=== PATIENT | male | born 1970 | race Caucasian/White ===

== ENCOUNTER 2022-04-18 10:32 | Emergency (ER) | payer MEDICAID ==
[2022-04-18] MEDS ORDERED: DIPH,PERTUS(ACELL)TETVAC-LF 0.5 ML VIAL IM ONE (11:05)
[2022-04-18] MEDS ORDERED: LIDOCAINE 2% INJ 20 MG/ML (20 ML MDV) SQ STA (11:07)
[2022-04-18] MEDS ORDERED: CEPHALEXIN 500 MG CAP PO STA (11:23)
[2022-04-18] MEDS ORDERED: MORPHINE SULFATE 4 MG/ML SYRINGE IM STA (11:25)
[2022-04-18] MEDS ORDERED: HYDROcodone/APAP 7.5-325MG 1 EACH TAB PO ONE (11:26)
--- NOTE | 2022-04-18 11:44 | XR ---
Left foot HISTORY: Chainsaw laceration first digit, rule out foreign body 3 views of the left foot There is a plantar calcaneal spur. Soft tissue defect present medial to the first metatarsal is noted , there is comminuted fracture of the cortex medially. There is metallic debris present at the site o f the wound which may be related to patient's chitina bone or possibly foreign bodies. No evident disl ocation. IMPRESSION: Fracture and soft tissue defect as described.
--- NOTE | 2022-04-18 12:10 | ED ---
Wound/Laceration HPI - General Chief Complaint: Wound/Laceration Stated Complaint: Chainsaw lac/left foot Time Seen by Provider: 04/18/22 10:46 Source: patient Mode of arrival: ambulatory Limitations: no limitations - History of Present Illness Initial Comments: Patient is a 51-year-old male who presents to the emergency department for laceration. Patient states he was using a chain saw today when it slipped and caught his left foot. Patient reports minimal pain. He does admit to some mild numbness around the laceration. Last tetanus unknown. - Related Data Previous Rx's Medication Instructions Recorded Cephalexin [Keflex] 500 mg PO Q6HR 5 Days #20 cap 04/18/22 Ibuprofen [Motrin] 800 mg PO Q6HR #30 tab 04/18/22 Allergies Allergy/AdvReac Type Severity Reaction Status Date / Time No Known Allergies Allergy Verified 04/18/22 10:37 Review of Systems ROS Statement: Those systems with pertinent positive or pertinent negative responses have been documented in the HPI. ROS Other: All systems not noted in ROS Statement are negative. Past Medical History Past Medical History: No Reported History History of Any Multi-Drug Resistant Organisms: None Reported Past Surgical History: No Surgical Hx Reported Past Psychological History: No Psychological Hx Reported Smoking Status: Never smoker Past Alcohol Use History: None Reported Past Drug Use History: None Reported General Exam Limitations: no limitations General appearance: alert, in no apparent distress Head exam: Present: atraumatic, normocephalic, normal inspection Eye exam: Present: normal appearance, PERRL, EOMI. Absent: scleral icterus, conjunctival injection, periorbital swelling Respiratory exam: Present: normal lung sounds bilaterally. Absent: respiratory distress, wheezes, rales, rhonchi, stridor Cardiovascular Exam: Present: regular rate, normal rhythm, normal heart sounds. Absent: systolic murmur, diastolic murmur, rubs, gallop, clicks Left Ankle exam: Present: normal inspection, full ROM. Absent: tenderness, swelling Foot/Toe exam: Present: full ROM, laceration (medial foot at first metatarsal ). Absent: tenderness, swelling Neurovascular tendon exam: Present: no vascular compromise. Absent: pulse deficit, abnormal cap refill, motor deficit, sensory deficit, tendon deficit, extremity cold to touch, pallor, decreased fine/light touch Neurological exam: Present: alert, oriented X3, CN II-XII intact Psychiatric exam: Present: normal affect, normal mood Skin exam: Present: warm, dry, intact, normal color. Absent: rash Course Vital Signs 04/18/22 04/18/22 04/18/22 10:35 11:07 14:02 Temperature 98.1 F 98 F Pulse Rate 88 110 H 92 Respiratory 20 20 18 Rate Blood Pressure 173/78 157/117 154/91 O2 Sat by Pulse 98 97 98 Oximetry Procedures - Laceration Laceration #1 Indication: laceration Site: lower extremity (left foot) Size (cm): 4 Description: linear Depth: involves tendon Anesthetic Used: lidocaine 1% Anesthesia Technique: local infiltration Pre-repair: wound explored, irrigated extensively, foreign body removed Type of Sutures: nylon Size of Sutures: 4-0 Number of Sutures: 5 Technique: vertical mattress Patient Tolerated Procedure: well, no complications - Orthopedic Splinting/Casting Injury #1 Lower Extremity Injury Location: foot Lower Extremity Immobilizer: posterior splint Other Orthopedic Equipment: crutches Medical Decision Making - Medical Decision Making This is a 51-year-old male who presents for left foot laceration. Thorough history and examination were performed. There is a laceration over the left medial foot over the first metatarsal approximately 4 cm. Neurovascularly intact. Full range of motion. Keflex and tetanus update given. X-ray obtained which shows a nondisplaced comminuted fracture of the medial cortex of the first metatarsal and metallic debris at the site of the wound which may be related to patient's big sandy bone or possibly foreign bodies. I spoke with engineer specialist Taylor Chavez personally who recommended irrigation with Betadine and closure with Keflex prescription and close follow-up in her office Thursday. This was performed. The laceration was irrigated extensively. There did appear to be tendon injury. Several metallic debris pieces were removed. It was well approximated with 5 loose sutures. Patient tolerated the procedure well with no complication. Patient was placed in posterior ankle splint. Neurovascularly intact on reassessment. Crutches given. Patient instructed to not bear any weight until orthopedic evaluation. Patient will be discharged with Keflex prescription. Wound care instruction provided in detail. Patient to call [facility] today to schedule an appointment for this Thursday. Return parameters discussed. Patient verbalizes understanding and is agreeable to this plan. Dr. Contreras is my attending. Disposition Clinical Impression: Laceration, Fracture of metatarsal bone of left foot Disposition: HOME SELF-CARE Condition: Good Additional Instructions: Please take medication as directed. It is very important to take her antibiotics. Keep splint clean and dry. Elevate the left foot as much as possible. Applying cold compress will help symptoms. You can apply a cold compress for 20 minutes each session, 4 times a day. Use crutches and do not put weight onto the left foot until orthopedic evaluation. Call orthopedic s pecialist today to schedule an appointment. Return to the emergency department if you experience new, concerning, or worsening symptoms. Prescriptions: Cephalexin [Keflex] 500 mg PO Q6HR 5 Days #20 cap Ibuprofen [Motrin] 800 mg PO Q6HR #30 tab Is patient prescribed a controlled substance at d/c from ED?: No Referrals: Edgar Riddle MD [Primary Care Provider] - 1-2 days Ting Cisneros DO [Doctor of Osteopathic Medicine] - 1-2 days Time of Disposition: 13:40
[2022-04-18] MEDS ORDERED: ACET/COD 300 MG/30 MG STARTER PACK 6 TAB BTL PO STA (13:41)
[2022-04-18 14:07] VITALS: BP 154/91; PULSE 92; RESP 18; TEMP 98
== END 2022-04-18 14:02 | disposition home or self-care (01) ==
LOC: EC 10:32
DX: S92.302A Fracture of unspecified metatarsal bone(s), left foot, initial encounter for closed fracture (principal); S91.312A Laceration without foreign body, left foot, initial encounter; Z23 Encounter for immunization; W31.2XXA Contact with powered woodworking and forming machines, initial encounter
CPT/HCPCS: 73630; 90715; 12002; 99283; 90471; J2001

== ENCOUNTER → 2022-04-21 | Outpatient (CLI) | payer MEDICAID ==
--- NOTE | 2022-04-21 14:01 | CT ---
EXAMINATION TYPE: CT foot LT wo con DATE OF EXAM: 04/21/2022 COMPARISON: X-ray 04/18/2022 HISTORY: laceration by chain saw CT DLP: 302 mGycm Automated exposure control for dose reduction was used. CONTRAST: CT scan of the left foot is performed without contrast FINDINGS- There is a soft tissue laceration adjacent to the margin of the first metatarsal. There is a defect c orresponding x-ray abnormality of the distal first metatarsal likely related to comminuted fracture w ith numerous bony fragments in soft tissues. Some soft tissue bony fragments extending into the epide rmal surface adjacent to the laceration could represent additional bony fragments on the tiny foreign body not excluded. There is soft tissue edema. Remaining osseous structures intact. Calcaneal spur noted. Joint spaces otherwise preserved. IMPRESSION- 1. Soft tissue laceration. A comminuted fracture of the distal margin of the first metatarsal. There are numerous tiny punctate densities in the soft tissues extending from bony surface to the epidermis site of laceration. May represent numerous tiny bony fragments although tiny punctate foreign body c ould not be excluded.
== END | disposition home or self-care (01) ==
LOC: RADCTMAIN 12:56
PROVIDERS: ATTEND Orthopaedic Surgery
DX: S91.312A Laceration without foreign body, left foot, initial encounter (principal); S92.312A Displaced fracture of first metatarsal bone, left foot, initial encounter for closed fracture

== ENCOUNTER 2022-04-23 11:20 | Day surgery (SDC) | payer MEDICAID ==
[2022-04-22 13:20] VITALS: BMI 33.0
[~2022-04-23 11:20] MED LIST: DEXAMETHASONE SOD PHOSPHATE 4 MG/ML 1 ML VIAL IV ONE; HYDROmorphone 0.5 MG/0.5 ML SYRINGE IVP PRN; LACTATED RINGERS 1,000 ML IV SCH; ONDANSETRON 4 MG/2 ML VIAL IVP ONE; Pre Op ABX Message 1 EACH MISC MISCELLANE ONE
[2022-04-23] MEDS ORDERED: PROPOFOL 10 MG/ML 20 ML VIAL IV ONE (12:32)
[2022-04-23] MEDS ORDERED: fentaNYL (PF) 50 MCG/ML 2 ML AMP ONE (12:32)
[2022-04-23] MEDS ORDERED: MIDAZOLAM 2 MG/2 ML VIAL ONE (12:32)
[2022-04-23] MEDS ORDERED: PHENYLEPHRINE-0.9% NACL SYG 1,000 MCG/10 ML SYRINGE ONE (12:32)
[2022-04-23] MEDS ORDERED: LIDOCAINE 2% INJ 20 MG/ML (2 ML VIAL) ONE (12:32)
[2022-04-23] MEDS ORDERED: HYDROmorphone (PF) 1 MG/ML ONE (12:32)
[2022-04-23 13:45] VITALS: TEMP 96.8
--- NOTE | 2022-04-23 13:49 | P.OP ---
Date of Procedure: 04/23/22 Preoperative Diagnosis: Open left first metatarsal fracture and soft tissue laceration from chainsaw injury Postoperative Diagnosis: Same Procedure(s) Performed: 1. Irrigation and debridement of open left first metatarsal fracture (excisional debridement using a scalpel of devitalized skin, subcutaneous tissue, muscle and bone down to the level of the first metatarsal) 2. Application of negative pressure dressing, left foot, incisional wound VAC less than 50 cm (7 cm length) Anesthesia: STEVE Surgeon: Jorgito Cummings Spa Director #1: Pierre Chan Estimated Blood Loss (ml): 20 IV fluids (ml): 500 Pathology: other (Deep cultures) Condition: stable Disposition: PACU Indications for Procedure: The patient is a previously healthy 51-year-old male who sustained a traumatic injury to his left foot last week using a chainsaw. He had an open wound over the medial aspect of the foot. He came to the emergency department where he was found to have an open first metatarsal fracture. My partner Dr. Cisneros was on-call and recommended bedside irrigation and debridement and closure in the emergency department. The patient came to my office for follow-up this past Thursday. I obtained a computed tomography scan and met with the patient and his to discuss further treatment yesterday. My recommendation was to explore the wound given the nature of his injury of having a chainsaw went through his boot. We discussed performing a thorough irrigation and debridement, treating his fracture nonoperatively, and applying an incisional wound VAC. We discussed potential risks and complications of surgery including the Cerner not limited to risks from anesthesia, superficial infection, deep infection, osteomyelitis, damage to local blood vessels or nerves, delayed wound healing, need for further surgery, back pain, sensitive scar, neuroma, difficulty with shoe wear, DVT, PE, and inability to regain preinjury level of function, and possibly loss of life or limb. The patient voiced his understanding is potential complications and also acknowledges that other less common Occasions or possible. Both his verbal and written consent to go forward with surgery. Operative Findings: No sign of deep infection, traumatic laceration of the abductor hallucis muscle, small bony defect in the medial shaft of the first metatarsal. Description of Procedure: The patient is independent preoperative holding and the correct left leg was marked my initials. I reviewed the consent form with the patient and his family. All their questions were answered. The patient was then brought back to the operating room. His position on the or table where general anesthetic and preoperative antibiotics were given. The nylon sutures over his left foot were removed. A tourniquet was applied the proximal aspect of the left leg but was not inflated. The left leg was then prepped and draped in standard sterile fashion. Prior to starting surgery timeout was performed identifying the correct patient, operative extremity, and procedure. I began by performing an excisional debridement of the left foot using a scalpel. All devitalized skin, subcutaneous tissue, muscle, and bone down to the level of first metatarsal were sharply debrided using a scalpel. There were several completely devitalized loose bone fragments which were debrided. There is no sign of deep infection. There is a small defect on the medial shaft of the first metatarsal. There was no gross contamination. The wound was then thoroughly irrigated using 3 L of sterile saline through cystoscopy tubing. The abductor hallux muscle was then carefully reapproximated using #1 PDS [id number] stitch. The deep subcutaneous tissue was carefully reapproximated using 2-0 Prolene, the skin was loosely reapproximated using 3-0 nylon horizontal mattress sutures. An incisional wound VAC was then placed, hooked up to this canister, and found to have an excellent seal. A web roll and Ryne wrap were applied and the patient's foot was placed into a short boot. He was extubated, transferred to the [facility], and brought to recovery having tolerated the procedure well. Pierre Chan PA-C was required as a skilled employee relations assistant. Plan: The patient is going to discharge home this afternoon. He can heel weight-bear in a boot. He will leave his surgical wound VAC in place for 1 week. We have consulted Dr. Reina for antibiotic recommendations include coverage for Pseudomonas given the chainsaw going through his work boot. He will follow-up in the office for wound check in 1 week. He does not need x-rays at that time.
[2022-04-23 15:09] VITALS: BP 146/93; PULSE 72; RESP 18
== END 2022-04-23 15:30 | disposition home or self-care (01) ==
LOC: OR 11:20
PROVIDERS: ATTEND Orthopaedic Surgery
DX: S91.312A Laceration without foreign body, left foot, initial encounter (principal); S92.312B Displaced fracture of first metatarsal bone, left foot, initial encounter for open fracture; W29.3XXA Contact with powered garden and outdoor hand tools and machinery, initial encounter; Z98.890 Other specified postprocedural states; Z79.1 Long term (current) use of non-steroidal anti-inflammatories (NSAID)
CPT/HCPCS: 87070; 87205; 87075; 11044; 11047; J2250; J1100; J0690; J2405; J3010; J1170; J2370; J2704; J2001